=== PATIENT | male | born 1985 | race Hispanic/Latino ===

== ENCOUNTER 2020-11-07 12:08 | Emergency (ER) | payer BC ==
[2020-11-07] MEDS ORDERED: IBUPROFEN 400 MG TAB ONE (14:14)
[2020-11-07] MEDS ORDERED: BENZONATATE 100 MG CAP PO ONE (14:15)
[2020-11-07] MEDS ORDERED: ALBUTEROL INHALER 60 PUFF/8 GM IH ONE (14:15)
--- NOTE | 2020-11-07 14:49 | ER ---
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 SOB for 2 days, O2 sat at home 93-94%. Fever up to 102 at home. Coronavirus screen: Client denies travel out of the [place] in the last 14 days. congestion, cough unrelated to allergies, difficulty breathing, Client presents with at least one sign or symptom that may indicate coronavirus-19. Standard/surgical mask placed on the client. Ebola Screen: Patient denies travel to an Ebola-affected area in the 21 days before illness onset. Initial Sepsis Screen: Does the patient meet any 2 criteria? HR > 90 bpm. No. Patient's initial sepsis screen is negative. Does the patient have a suspected source of infection? Yes: Productive cough/pneumonia. Risk Assessment: Do you want to hurt yourself or someone else? Patient reports no desire to harm self or others. Onset of symptoms was October 31, 2020. 12:25 Method Of Arrival: Ambulatory 5 12:25 Acuity: STEVEN 3 dm5 Triage Assessment: 15:00 General: Appears in no apparent distress. Behavior is calm. Respiratory: Reports iw shortness of breath cough that is Onset: The symptoms/episode began/occurred X 1 week, the patient has mild shortness of breath. Historical: - Allergies: 12:25 No Known Allergies; dm5 - PMHx: 12:25 None; dm5 - PSHx: 12:25 None; dm5 - Immunization history:: Flu vaccine is not up to date. - Social history:: Smoking status: Patient denies any tobacco usage or history of. Screenin:18 Abuse screen: Denies threats or abuse. Denies injuries from another. Nutritional iw screening: No deficits noted. Tuberculosis screening: No symptoms or risk factors identified. Fall Risk None identified. Assessment: 13:30 General: Appears in no apparent distress. Behavior is calm, cooperative. General: iw Reports fever for 2-3 days, feeling ill for 2-3 days, fatigue for 2-3 days. Pain: Complains of pain in head. Neuro: Level of Consciousness is awake, alert, obeys commands, Oriented to person, place, time, situation, Moves all extremities. Cardiovascular: Rhythm is regular. Respiratory: Airway is patent Respiratory effort is even, unlabored, Respiratory pattern is regular, Breath sounds with crackles bilaterally. GI: Abdomen is non-distended. Derm: Skin is intact, is healthy with good turgor. Musculoskeletal: Range of motion: intact in all extremities. Vital Signs: 12:25 BP 139 / 85; Pulse 112; Resp 19; Temp 101.2; Pulse Ox 98% ; Weight 113.4 kg; Height 5 dm5 ft. 5 in. (165.10 cm); Pain 7/10; 14:43 BP 133 / 87; Pulse 104; Resp 18 S; Temp 100.2(O); Pulse Ox 97% on R/A; iw 12:25 Body Mass Index 41.60 (113.40 kg, 165.10 cm) dm5 ED Course: 12:11 Patient arrived in ED. ds1 12:25 Arm band placed on. dm5 12:28 Triage completed. dm5 13:17 Harleen Wang, RN is Primary Nurse. iw 13:20 Stevan Crespo PA is PHCP. cp 13:20 Jason Noguera MD is Attending Physician. cp 14:00 Patient has correct armband on for positive identification. iw 14:16 XRAY Chest (1 view) In Process Unspecified. EDMS 15:18 No provider procedures requiring assistance completed. Patient did not have IV access iw during this emergency room visit. Administered Medications: 14:09 Drug: Tessalon Perle 200 mg Route: PO; iw 14:10 Drug: Ibuprofen 800 mg Route: PO; iw 14:39 Not Given (Physician Discretion): Albuterol HFA Inhaler 2 puffs Inhalation once cp Outcome: 14:48 Discharge ordered by . cp 15:18 Discharged to home ambulatory. iw 15:18 Condition: good 15:18 Discharge instructions given to patient, Instructed on discharge instructions, follow up and referral plans. medication usage, Demonstrated understanding of instructions, follow-up care, medications, Prescriptions given X 4. 15:19 Patient left the ED. dm5 Signatures: Dispatcher [employer] Rubina Lee RN RN dm5 Violetta Golden ds1 Harleen Wang RN RN iw Page, Corey, PA PA cp
--- NOTE | 2020-11-07 14:49 | EDPHYS ---
Physician Documentation [facility] Name: Parish Lujan Age: 34 yrs Sex: Male : 1985 Arrival Date: 11/07/2020 Time: 12:11 Bed 15 Private MD: ED Physician Jason Noguera HPI: 11/07 13:50 This 34 yrs old Male presents to ER via Ambulatory with complaints of Covid+, cp Breathing Difficulty. 13:50 The patient or guardian reports cough, that is constant. cp 13:50 Onset: The symptoms/episode began/occurred 6 day(s) ago. Associated signs and symptoms: cp Pertinent positives: fever, Pertinent negatives: chest pain, diarrhea, sore throat, vomiting. Patient reports being diagnosed with COVID-19 on 10-31-2020. Recently finished prescriptions for Zithromax and steroids. Historical: - Allergies: 12:25 No Known Allergies; dm5 - PMHx: 12:25 None; dm5 - PSHx: 12:25 None; dm5 - Immunization history:: Flu vaccine is not up to date. - Social history:: Smoking status: Patient denies any tobacco usage or history of. ROS: 14:00 Constitutional: Positive for fever, Negative for poor PO intake. cp 14:00 Eyes: Negative for injury, pain, redness, and discharge. cp 14:00 Neck: Negative for pain with movement, pain at rest, stiffness. 14:00 Cardiovascular: Negative for chest pain, edema, palpitations. 14:00 Respiratory: Positive for cough, "sounds productive", shortness of breath, Negative for wheezing. 14:00 Abdomen/GI: Negative for abdominal pain, nausea, vomiting, and diarrhea. 14:00 Neuro: Negative for altered mental status, dizziness, headache, syncope, weakness. 14:00 All other systems are negative. Exam: 14:05 Constitutional: The patient appears in no acute distress, alert, awake, cp non-diaphoretic, non-toxic, well developed, well nourished, obese. 14:05 Head/Face: Normocephalic, atraumatic. cp 14:05 Eyes: Periorbital structures: appear normal, Conjunctiva: normal, no exudate, no injection, Sclera: no appreciated abnormality, Lids and lashes: appear normal, bilaterally. 14:05 ENT: External ear(s): are unremarkable, Nose: is normal, Mouth: Lips: moist, Oral mucosa: pink and intact, moist, Posterior pharynx: Airway: no evidence of obstruction, patent, Tonsils: are normal in appearance, erythema, that is mild, exudate, is not appreciated. 14:05 Neck: ROM/movement: is normal, is supple, no meningismus, no nuchal rigidity. 14:05 Chest/axilla: Inspection: normal, Palpation: is normal, no crepitus, no tenderness. 14:05 Cardiovascular: Rate: tachycardic, Rhythm: regular, Edema: is not appreciated, JVD: is not appreciated. 14:05 Respiratory: the patient does not display signs of respiratory distress, Respirations: normal, no use of accessory muscles, no retractions, labored breathing, is not present, Breath sounds: bronchial sounds, that are mild, are heard diffusely, decreased breath sounds, are not appreciated, stridor, is not appreciated, + upper airway congestion. wheezing: is not appreciated. 14:05 Abdomen/GI: Inspection: abdomen appears normal, Palpation: abdomen is soft and non-tender, in all quadrants. 14:05 Back: pain, is absent, ROM is normal. 14:05 Neuro: Orientation: to person, place \\T\\ time. Mentation: is normal, Motor: moves all fours, strength is normal. Vital Signs: 12:25 BP 139 / 85; Pulse 112; Resp 19; Temp 101.2; Pulse Ox 98% ; Weight 113.4 kg; Height 5 dm5 ft. 5 in. (165.10 cm); Pain 7/10; 14:43 BP 133 / 87; Pulse 104; Resp 18 S; Temp 100.2(O); Pulse Ox 97% on R/A; iw 12:25 Body Mass Index 41.60 (113.40 kg, 165.10 cm) dm5 MDM: 14:00 Differential diagnosis: bronchitis, flu, pneumonia, respiratory distress. cp 14:48 Patient medically screened. cp 14:48 Data reviewed: vital signs, nurses notes, radiologic studies, plain films. cp 14:48 Counseling: I had a detailed discussion with the patient and/or guardian regarding: the cp historical points, exam findings, and any diagnostic results supporting the discharge/admit diagnosis, radiology results, the need for outpatient follow up, a family practitioner, to return to the emergency department if symptoms worsen or persist or if there are any questions or concerns that arise at home. ED course: VSS. Patient appears non-toxic and no signs of respiratory distress. Will discharge to home for continued monitoring. 11/07 13:48 Order name: XRAY Chest (1 view) cp Administered Medications: 14:09 Drug: Tessalon Perle 200 mg Route: PO; iw 14:10 Drug: Ibuprofen 800 mg Route: PO; iw 14:39 Not Given (Physician Discretion): Albuterol HFA Inhaler 2 puffs Inhalation once cp Disposition: 17:18 Co-signature as Attending Physician, Jason Noguera MD I agree with the assessment and kdr plan of care. Disposition: 11/07/20 14:48 Discharged to Home. Impression: Coronavirus infection, unspecified, Pneumonia due to other specified infectious organisms. - Condition is Stable. - Discharge Instructions: Community-Acquired Pneumonia, Adult, COVID-19. - Prescriptions for Augmentin 875- 125 mg Oral Tablet - take 1 tablet by ORAL route every 12 hours for 10 days; 20 tablet. Tessalon Perles 100 mg Oral Capsule - take 2 capsule by ORAL route every 8 hours As needed; 30 capsule. Albuterol Sulfate 90 mcg/actuation - inhale 1-2 puff by INHALATION route every 4-6 hours; 1 Inhaler. dexamethasone 2 mg Oral tablet - take 1 tablet by ORAL route 3 times per day for 5 days; 15 tablet. - Medication Reconciliation Form, Thank You Letter, Antibiotic Education, Prescription Opioid Use form. - Follow up: Private Physician; When: 2 - 3 days; Reason: Recheck today's complaints. - Problem is new. - Symptoms have improved. Signatures: Dispatcher [employer] EDMS Rubina Mercedes RN RN dm5 Jason Noguera MD MD kdr Harleen Wang RN RN iw Stevan Crespo PA PA cp Corrections: (The following items were deleted from the chart) 14:50 14:48 11/07/2020 14:48 Discharged to Home. Impression: Coronavirus infection, cp unspecified. Condition is Stable. Forms are Medication Reconciliation Form, Thank You Letter, Antibiotic Education, Prescription Opioid Use. Follow up: Private Physician; When: 2 - 3 days; Reason: Recheck today's complaints. Problem is new. Symptoms have improved. cp 15:19 14:50 11/07/2020 14:48 Discharged to Home. Impression: Coronavirus infection, dm5 unspecified; Pneumonia due to other specified infectious organisms. Condition is Stable. Discharge Instructions: COVID-19, Community-Acquired Pneumonia, Adult. Prescriptions for Augmentin 875-125 mg Oral Tablet - take 1 tablet by ORAL route every 12 hours for 10 days; 20 tablet, Tessalon Perles 100 mg Oral Capsule - take 2 capsule by ORAL route every 8 hours As needed; 30 capsule, Albuterol Sulfate 90 mcg/actuation - inhale 1-2 puff by INHALATION route every 4-6 hours; 1 Inhaler, dexamethasone 2 mg Oral tablet - take 1 tablet by ORAL route 3 times per day for 5 days; 15 tablet. and Forms are Medication Reconciliation Form, Thank You Letter, Antibiotic Education, Prescription Opioid Use. Follow up: Private Physician; When: 2 - 3 days; Reason: Recheck today's complaints. Problem is new. Symptoms have improved. cp
--- NOTE | 2020-11-07 15:08 | RAD REPORT ---
EXAM DESCRIPTION: RAD - Chest Single View - 11/07/2020 2:15 pm CLINICAL HISTORY: Cough;Fever Chest pain. COMPARISON: No comparisons FINDINGS: Portable technique limits examination quality. Interstitial lung opacities are present, greater on the left, most compatible with viral pneumonitis/ bronchitis. The heart is normal in size. No displaced fractures.
[2020-11-07 15:59] VITALS: BP 133/87; TEMP 100.2; O2SAT 97
== END 2020-11-07 15:19 | disposition home or self-care (01) ==
LOC: ER 12:08
DX: U07.1 COVID-19 (principal); J12.82 Pneumonia due to coronavirus disease 2019
CPT/HCPCS: 71045; 99283